=== PATIENT | female | born 1955 | race Caucasian/White ===

== ENCOUNTER → 2017-01-20 | Outpatient (CLI) | payer OTHER ==
[2014-11-08 15:09] VITALS: BP 141/78
[~2017-01-20] MED LIST: CINN500C PO; ESTR1TAB4 PO; FENO145T2 PO; LOSA25TA PO; METF500T4 PO; MULT-208 PO; SITA50TA PO
--- NOTE | 2017-01-20 16:29 | KCIC ---
Bilateral digital screening mammograms with CAD: HISTORY Routine screening. COMPARISON Comparison is made to previous examinations dated 12/11/2015 and 07/22/2014. FINDINGS Breast density category D. The skin and nipples show no abnormalities. No abnormal lymph nodes are seen in the axilla. The breast parenchyma is extremely dense. There are no dominant masses, suspicious calcifications or architectural distortions. IMPRESSION No evidence of malignancy. Recommend routine annual mammographic screening. This study was interpreted with the benefit of Computerized Aided Detection (CAD). Mammography is not 100% sensitive in detecting breast cancer. Therefore, a self breast exam and a clinical breast exam are very important. A negative mammogram does not negate a clinically suspicious finding and should not result in a delay in biopsying a clinically suspicious abnormality. BI-RADS category 1. Negative. This patient's information has been entered into a reminder system for the patient to be notified with the results of this examination and a target date for her next mammograms. Electronically signed by: Lucia Mcguire MD (January 20, 2017 16:27:24)
== END | disposition home or self-care (01) ==
LOC: KCIC MAMMO 12:35
PROVIDERS: ATTEND Family Medicine
DX: Z12.31 Encounter for screening mammogram for malignant neoplasm of breast (principal)
CPT/HCPCS: G0202; 77067

== ENCOUNTER → 2017-01-23 | Outpatient (CLI) | payer OTHER ==
[2014-11-08 15:09] VITALS: BP 141/78
--- NOTE | 2017-01-23 10:22 | RAD ---
Indication: Vertigo for one week. Axial imaging through the brain was performed without contrast. No prior studies are available for comparison. The ventricles and sulci are within normal limits. No sulcal effacement, midline shift or hemorrhage is detected. The cisterns are patent. Visualized paranasal sinuses are clear. Impression: No acute intracranial process is detected. PQRS Compliance Statement: One or more of the following individualized dose reduction techniques were utilized for this examination: 1. Automated exposure control 2. Adjustment of the mA and/or kV according to patient size 3. Use of iterative reconstruction technique
== END | disposition home or self-care (01) ==
LOC: CT 09:50
PROVIDERS: ATTEND Nurse Practitioner Family
DX: R42 Dizziness and giddiness (principal)
CPT/HCPCS: 70450

== ENCOUNTER → 2017-08-19 | Outpatient (CLI) | payer OTHER ==
[2014-11-08 15:09] VITALS: BP 141/78
[~2017-08-19] MED LIST changes: -CINN500C PO; +CINN500C2 PO
--- NOTE | 2017-08-19 13:23 | KCIC ---
CT of the pelvis without contrast HISTORY: Pelvic pressure. Urinary urgency. Exposure: One or more of the following individualized dose reduction techniques were utilized for this examination: 1. Automated exposure control 2. Adjustment of the mA and/or kV according to patient size 3. Use of iterative reconstruction technique. TECHNIQUE: No intravenous or oral contrast as per request. FINDINGS: The aortoiliac structures are calcified. No significant enlargement of the visualized lymph nodes. No evidence of ascites. Visualized bowel loops are not distended. The unopacified urinary bladder is incompletely distended. No evidence of pelvic mass. No evidence of acute skeletal abnormality. IMPRESSION: No acute findings. Electronically signed by: Jostin Clement MD (08/19/2017 1:20 PM) [facility]
== END | disposition home or self-care (01) ==
LOC: KCIC CT 10:55
PROVIDERS: ATTEND Nurse Practitioner Family
DX: R39.15 Urgency of urination (principal)
CPT/HCPCS: 72192

== ENCOUNTER → 2018-05-20 | Outpatient (CLI) | payer OTHER ==
[2014-11-08 15:09] VITALS: BP 141/78
[~2018-05-20] MED LIST changes: -FENO145T2 PO; +FENO145T30 PO; +METF500T16 PO; -METF500T4 PO
--- NOTE | 2018-05-20 17:05 | KCIC ---
CHEST PA LATERAL Clinical indications: Chronic cough for 3 months. COMPARISON: November 07, 2014. Findings: No acute lung infiltrate or pleural effusion or pulmonary edema or lung mass or pneumothorax is seen. The heart size, pulmonary vasculature, mediastinum and both barbi are unremarkable. The osseous structures appear intact. Impression: No acute radiographic abnormality is seen. Electronically signed by: Duy Subramanian MD (05/20/2018 5:01 PM) [facility]
== END | disposition home or self-care (01) ==
LOC: RAD 11:40
PROVIDERS: ATTEND Family Medicine
DX: R05 Cough (principal); E03.9 Hypothyroidism, unspecified; Z82.49 Family history of ischemic heart disease and other diseases of the circulatory system
CPT/HCPCS: 71046

== ENCOUNTER → 2019-02-03 | Outpatient (CLI) | payer OTHER ==
[2014-11-08 15:09] VITALS: BP 141/78
--- NOTE | 2019-02-03 11:43 | KCIC ---
EXAM: Dual energy x-ray absorptiometry (DEXA). HISTORY: Postmenopausal female presents for osteoporosis screening. COMPARISON: None. TECHNIQUE: Dual energy x-ray absorptiometry of the lumbar spine and left hip was performed. Calculation of bone mineral density based on standard deviations above or below the expected young adult normal value (T-score) was completed. FINDINGS: The average bone mineral density in the 1st through 4th lumbar vertebrae is 0.995 g/cmxcm, corresponding with a T-score of -0 point. The average total bone mineral density in the left is 0.893 g/cmxcm, corresponding with a T-score of -0.4. IMPRESSION: Normal bone mineral density. Note: Definitions established by the World Health Organization: 1. Normal: T-score is -1.0 or above. 2. Osteopenia: T-score is between -1.0 and -2.5 . 3. Osteoporosis: T-score is -2.5 or below. Electronically signed by: Ijeoma Tang MD (02/03/2019 11:40 AM) [place] [id number]
--- NOTE | 2019-02-03 12:06 | KCIC ---
Bilateral digital screening mammograms: Reason for examination: Routine screening. Comparison is made to previous studies dated 01/20/2017 and 12/11/2015. Interpretation was made with the benefit of CAD. The skin and nipples show no abnormalities. No abnormal axillary lymph nodes are seen. The breast parenchyma is extremely dense. (Breast density: Category D.) There continues to be a small nodular density consistent with an intramammary lymph node at the 10:00 C position of the right breast. There are no new dominant masses, suspicious calcifications or architectural distortion. Impression: No evidence of malignancy. Recommend routine screening. Your patient's mammogram demonstrates that she has dense breast tissue (breast density category C or D), which could hide abnormalities, and if she has other risk factors for breast cancer that have been identified, she might benefit from supplemental screening tests that may be suggested by you as her ordering physician. Dense breast tissue, in and of itself, is a relatively common condition. Therefore, this information is not provided to cause undue concern, but rather to raise your awareness and to promote discussion with your patient regarding the presence of other risk factors, in addition to dense breast tissue. Your patient's mammography results will be sent to her. BI-RAD Category 2: Benign. "Our facility is accredited by the [employer] Mammography [employer]." This patient's information has been entered into a reminder system for the patient to be notified with the results of her examination and a target date for the next mammogram. Electronically signed by: Mallorie Mcguire MD (02/03/2019 12:03 PM) [id number]
== END | disposition home or self-care (01) ==
LOC: KCIC DEXA 10:52
PROVIDERS: ATTEND Family Medicine
DX: Z12.31 Encounter for screening mammogram for malignant neoplasm of breast (principal); Z13.820 Encounter for screening for osteoporosis; N95.9 Unspecified menopausal and perimenopausal disorder
CPT/HCPCS: 77067; 77080

== ENCOUNTER → 2021-12-06 | Outpatient (CLI) | payer OTHER ==
[2019-08-03 11:00] VITALS: BP 130/67
[~2021-12-06] MED LIST changes: +EMPA25TA3 PO; +FENO145T3 PO; -FENO145T30 PO; +INSU100V13 SQ; +LEVO-101 PO; +METF10007 PO; +ROSU5TAB12 PO
--- NOTE | 2021-12-06 14:49 | KCIC ---
Bilateral digital screening mammograms with 3-D tomosynthesis: Reason for examination: Routine screening. Comparison is made to previous studies dated back to 12/11/2015. Bilateral mammograms in CC and oblique projections were obtained with 2-D imaging and 3-D tomosynthes is imaging on a Siemens Inspiration unit and reviewed on the workstation. Interpretation was made wit h the benefit of CAD. The skin and nipples show no abnormalities. No abnormal axillary lymph nodes are seen. The breast par enchyma is extremely dense. (Breast density: Category D.) There are no dominant masses, suspicious ca lcifications or architectural distortion. Impression: No evidence of malignancy. Recommend routine screening. Your patient's mammogram demonstrates that she has dense breast tissue (breast density category C or D), which could hide abnormalities, and if she has other risk factors for breast cancer that have bee n identified, she might benefit from supplemental screening tests that may be suggested by you as her ordering physician. Dense breast tissue, in and of itself, is a relatively common condition. Therefo re, this information is not provided to cause undue concern, but rather to raise your awareness and t o promote discussion with your patient regarding the presence of other risk factors, in addition to d ense breast tissue. Your patient's mammography results will be sent to her. BI-RAD Category 1: Negative. "Our facility is accredited by the [employer] Mammography Program." This patient's information has been entered into a reminder system for the patient to be notified wit h the results of her examination and a target date for the next mammogram. Electronically signed by: Mallorie Mcguire MD (12/06/2021 2:47 PM) [facility]
== END ==
LOC: KCIC MAMMO 12:24
PROVIDERS: ATTEND Family Medicine
DX: Z12.31 Encounter for screening mammogram for malignant neoplasm of breast (principal)
CPT/HCPCS: 77063; 77067

== ENCOUNTER → 2021-12-25 | Outpatient (CLI) | payer OTHER ==
[2019-08-03 11:00] VITALS: BP 130/67
--- NOTE | 2021-12-25 13:36 | KCIC ---
EXAM: Left lower extremity venous Doppler. HISTORY: Left lower extremity pain/swelling. COMPARISON: None. FINDINGS: Grayscale and Doppler analysis of the left lower extremity deep venous system was performed with graded compression and augmentation. The common femoral, greater saphenous, superficial femoral , popliteal and calf veins were assessed. There is no evidence of deep venous thrombosis. IMPRESSION: 1. No evidence of deep venous thrombosis. Electronically signed by: Yunier Balderas MD (12/25/2021 1:34 PM) [id number]
== END ==
LOC: KCIC US 12:19
PROVIDERS: ATTEND Family Medicine
DX: M79.662 Pain in left lower leg (principal)
CPT/HCPCS: 93971